=== PATIENT | male | born 1950 ===

== ENCOUNTER → 2017-01-30 | Day surgery (SDC) | payer MEDICARE ==
[~2017-01-30] VITALS: Ht 180.3 cm; Wt 63.5 kg
[2017-01-30] VITALS (8 sets, daily range): BP systolic 109–124; BP diastolic 65–77
[~2017-01-30] MED LIST: LR 1000ml 1,000 ML IVLG SCH; NKM; Propofol 10mg/ml 20ml IV ONE
--- NOTE | 2017-01-30 09:13 | Short Stay Surgery H&P ---
History of Present Illness History of Present Illness Chief Complaint Abdominal pains. EFREN Estrella is a 66 year old male who was admitted on for Abdominal Pain Review of Systems Cardiovascular: Reports: no symptoms Respiratory: Reports: no symptoms Skeletal: Reports: no symptoms Gastrointestinal: Reports: other Genitourinary: Reports: no symptoms Neurologic: Reports: no symptoms Endocrine: Reports: no symptoms Hematologic: Reports: no symptoms Physical Exam Skin: normal HENT: normal Heart: normal Lungs: normal Abdomen: abnormal Extremities: normal Genitourinary: normal Plan Plan of Care Upper and lower GI endoscopies. Preop Interventions None. Summary of Findings See the reports. Final Diagnosis: Attestation Are the patient's medical conditions optimized for surgery? Attestation Response: yes RICKEY HITCHCOCK Jan 30, 2017 09:13
--- NOTE | 2017-01-30 09:14 | Pre-Procedure Note/Attestation ---
Pre-Procedure Note/Attestation Complete Prior to Procedure Planned Procedure: left Procedure Narrative: Endoscopic examinations of the upper and the lower GI tract. Indications for Procedure Pre-Operative Diagnosis: R/O gastritis, peptic ulcer and colon polyp/cancer. Attestation I attest that I discussed the nature of the procedure; its benefits; risks and complications; and alternatives (and the risks and benefits of such alternatives ), prior to the procedure, with the patient (or the patient's legal business process representative). I attest that, if there was a reasonable possibility of needing a blood transfusion, the patient (or the patient's legal business process representative) was given the [facility] standardized written summary, pursuant to the Michael Ting Blood Safety Act ([place] Health and Safety Code # 1645, as amended). I attest that I re-evaluated the patient just prior to the surgery and that there has been no change in the patient's H&P, except as documented below: CORETTASAID Jan 30, 2017 09:14
--- NOTE | 2017-01-30 10:20 | Anethesia Preoperative Eval ---
Anesthesia Pre-op PMH/ROS General Date of Evaluation: Jan 30, 2017 Time of Evaluation: 10:19 Anesthesiologist: Loi ASA Score: ASA 2 Mallampati Score Class I : Soft palate, uvula, fauces, pillars visible Class II: Soft palate, uvula, fauces visible Class III: Soft palate, base of uvula visible Class IV: Only hard plate visible Mallampati Classification: Class II Surgeon: artem Diagnosis: abdominal pain, screening Surgical Procedure: EGD/Colonoscopy Anesthesia History: none Family History: no anesthesia problems Allergies: Coded Allergies: No Known Allergies (Unverified , 01/30/17) Medications: see eMAR Past Medical History Cardiovascular: Denies: CAD, HTN, PA, arrhythmia, other, valve dz Pulmonary: Denies: COPD, CHRISTEL, asthma, other Gastrointestinal/Genitourinary: Reports: GERD Neurologic/Psychiatric: Denies: CVA, TIA, dementia, depression/anxiety, other Endocrine: Denies: DM, hypothyroidism, other, steroids HEENT: Denies: [place] (L), [place] (R), cataract (L), cataract (R), glaucoma, other Hematology/Immune: Denies: DVT, anemia, bleeding disorder, other Musculoskeletal/Integumentary: Denies: DDD, DJD, OA, RA, edema, other PMH Narrative: GERD PSxH Narrative: EGD Anesthesia Pre-op Phys. Exam Physician Exam Last Vital Signs Date Time Temp Pulse Resp B/P Pulse Ox O2 Delivery O2 Flow Rate FiO2 01/30/17 10:01 97.4 54 18 121/75 99 Room Air Constitutional: NAD Neurologic: CN 2-12 intact Gastrointestinal: S/NT/ND Airway Exam Mallampati Score: Class II MO: full ROM: full Teeth: intact Dentures: no lower, no upper MARGARITA RUELAS D.O. Jan 30, 2017 10:20
--- NOTE | 2017-01-30 10:40 | Endoscopy Procedure Note ---
Endoscopy Procedure Note Indication for Procedure: Abdominal pains and screenning colonoscopy Procedures Performed: EGD - Normal uppr GI endoscopy, biopsy done per random from gastric body., colonoscopy - Internal hemorrhoids, mild diverticulosis of the left colon. Specimen: yes Pt Tolerated Procedure Well: Yes Estimated Blood Loss: none Anesthesiologist: Dr. Monsivais Anesthesia: moderate sedation Medication Given: see anesthesia record Implant(s) used?: No 50 yrs or older w/o bx or poly: Yes 10yrs. F/U not recommended: Yes 10 yrs. F/U needed: Yes 18 years or older w/prev. colo: No <3yrs. since last colonoscopy: No Med reason:<3 yrs.: System Reason:<3 yrs.: Last colonoscopy >= to 3yrs: Yes RICKEY HITCHCOCK Jan 30, 2017 10:40
--- NOTE | 2017-01-30 10:41 | Immediate Post-Op Evaluation ---
Immediate Post-Op Evalulation Immediate Post-Op Evalulation Procedure: EGD wtih biopsy/Colonoscopy Date of Evaluation: Jan 30, 2017 Time of Evaluation: 10:40 IV Fluids: 100ml Blood Products: none Estimated Blood Loss: non Urinary Output: due to void Blood Pressure Systolic: 121 Blood Pressure Diastolic: 76 Pulse Rate: 50 Respiratory Rate: 18 O2 Sat by Pulse Oximetry: 99 Temperature (Fahrenheit): 97.2 Pain Score (1-10): 0 Nausea: No Vomiting: No Complications none Patient Status: awake, reacts Hydration Status: adequate Drug: n/a Given Within 1 Hr of Incision: MARGARITA Cee D.O. Jan 30, 2017 10:41
--- NOTE | 2017-01-30 10:41 | Discharge Instructions ---
Discharge Instructions Discharge Instructions Follow up with: will talk to , no office follow up needed. For Congestive Heart Failure Reminder Report to your physician any weight gain of 5 pounds or more in one week. RICKEY HITCHCOCK Jan 30, 2017 10:41
--- NOTE | 2017-01-30 10:54 | 48 Hour Post Anesthesia Eval ---
Post Anesthesia Evaluation Procedure: EGD [facility] biopsy/Colonoscopy Date of Evaluation: Jan 30, 2017 Time of Evaluation: 10:50 Blood Pressure Systolic: 128 0: 80 Pulse Rate: 62 Respiratory Rate: 16 Temperature (Fahrenheit): 97.5 O2 Sat by Pulse Oximetry: 100 Airway: patent Nausea: No Vomiting: No Pain Intensity: 0 Hydration Status: adequate Cardiopulmonary Status: stable Mental Status/LOC: patient returned to baseline Follow-up Care/Observations: as per GI Post-Anesthesia Complications: none Follow-up care needed: N/A MARGARITA RUELAS D.O. Jan 30, 2017 10:54
--- NOTE | 2017-01-30 19:47 | Operative Note - Dictated ---
DATE OF OPERATION: 01/30/2017 PROCEDURE: Esophagogastroduodenoscopy with biopsy. PREOPERATIVE DIAGNOSIS: Abdominal pain. POSTOPERATIVE DIAGNOSIS: Completely normal upper gastrointestinal endoscopy. Biopsy was taken per random from gastric body. MEDICATION USED: Per Dr. Monsivais. INSTRUMENT: GIF Olympus upper gastrointestinal video endoscope. DESCRIPTION OF PROCEDURE: The patient after arriving in the endoscopy unit, was told about risks and benefits of the procedure, which he accepted and signed the informed consent. At this time, he was put on the left lateral decubitus position. After adequate IV sedation, the scope was gently passed through the cricopharyngeal area, was lodged in the upper esophagus, and gradually advanced towards gastroesophageal junction. The entire length of the esophagus looked normal. GE junction also looked normal without any evidence of Beltran's or hiatal hernia. At this time, the scope was advanced into the stomach. Gastric cavity was distended with insufflation of air. The areas of the fundus and the body and the antrum were examined in punch machine hand fashion, which revealed complete normal finding without any abnormalities such as tumors, polyps, ulceration, gastritis etc. One random biopsy from mid part of the stomach was obtained. Subsequently, the scope was passed through normal looking pylorus. First and second portion of duodenum were found to be completely normal. Finally, the scope was pulled out and the procedure was terminated. The patient tolerated the procedure well. Said Dhaval Gonsalez DR: CHAITANYA JOB#: [id number] CC:
--- NOTE | 2017-01-30 20:58 | Operative Note - Dictated ---
SURGEON: Asa Gonsalez M.D. PROCEDURE: Total colonoscopy. PREOPERATIVE DIAGNOSES: 1. Abdominal pain. 2. Screening colonoscopy. POSTOPERATIVE DIAGNOSES: 1. Minimal internal hemorrhoid. 2. Minimal diverticulosis of the left colon. Otherwise, complete normal total colonoscopy. MEDICATIONS: Per Dr. Monsivais, anesthesiologist. INSTRUMENT: GIF Olympus video colonoscope. DESCRIPTION OF PROCEDURE: The patient after arriving endoscopy unit, was told about risks and benefits of the procedure, which he accepted and signed the informed consent. He was then put on the left lateral decubitus position. After adequate IV sedation, scope was gently passed through the anal area, which revealed evidence of minimal internal hemorrhoids of no great significance certainly but not friable. Retroflexion maneuver in the rectum was applied and this did not reveal any abnormalities. At this time, the scope was gradually advanced sigmoid area into descending colon revealing occasionally diverticular openings of no great significance of minimal numbers. Finally the scope was passed through this area reached to the splenic flexure into transverse colon, hepatic flexure, right colon all the way to the base of the cecum. All these areas remained to be normal and no polyps, tumors, inflammatory process, stricture etc. was found. Upon reaching toward the base of the cecum, the scope was gradually pulled out within 6 minutes and re-evaluation of the colon did not add any abnormalities. The colon cleanup was adequate. The patient tolerated the procedure well and left the endoscopy room in good condition Asa Gonsalez M.D. DR: Danae JOB#: [id number] CC:
== END | disposition home or self-care (01) ==
LOC: GAS 09:25
DX: Z12.11 Encounter for screening for malignant neoplasm of colon (principal); R10.9 Unspecified abdominal pain; K64.8 Other hemorrhoids; K57.30 Diverticulosis of large intestine without perforation or abscess without bleeding; K21.9 Gastro-esophageal reflux disease without esophagitis
CPT/HCPCS: 43239; G0121; J2704; 94003; 94150